=== PATIENT | female | born 1945 | race Caucasian/White ===

== ENCOUNTER 2016-05-18 11:55 | Emergency (ER) | payer MEDICARE, OTHER ==
[~2016-05-18 11:55] MED LIST: ALEV220T26 PO; AMBI5TAB PO; COUM2.5T11 PO; DYAZ37.5 PO; Docusate Sod/Senna PO; FLON0.054; FLUO20CA8 PO; LEVO2TA PO; LEVO50TA5 PO; PERC5TAB6 PO; VITA200016 PO; triamterene PO
[2016-05-18] MEDS ORDERED: KETOROLAC 30 MG/ML VIAL (J1885) As Ordered ONE (13:40)
--- NOTE | 2016-05-18 15:24 | EDDOCDS ---
Physician Documentation [facility] Name: Nury Holguin Age: 70 yrs Sex: Female : 1945 Arrival Date: 05/18/2016 Time: 11:55 Bed 12 Private MD: Allyssa Faust Disposition: 05/18/16 14:36 Discharged to Home/Self Care. Impression: Low back pain. - Condition is Stable. - Discharge Instructions: Back Pain, Adult, Musculoskeletal Pain. - Prescriptions for Ibuprofen 600 mg Oral Tablet - take 1 tablet by ORAL route every 6 hours As needed take with food; 30 tablet. Cyclobenzaprine 10 mg Oral Tablet - take 1 tablet by ORAL route 3 times per day As needed; 15 tablet. - Medication Reconciliation, Local Pharmacy Hours form. - Follow up: Allyssa Faust; When: 4 - 5 days; Reason: Recheck today's complaints, Continuance of care. - Problem is an ongoing problem. - Symptoms are unchanged. - Notes: ice 20min an hour Historical: - Allergies: SULFA (SULFONAMIDES); - Home Meds: 1. Ambien 5 mg Oral tab 1 tab once daily 2. Synthroid 50 mcg Oral tab 1 tab once daily 3. fluoxetine 40 mg Oral cap 1 cap once daily 4. triamterene 37.5mg daily 5. Vitamin D Oral 2000 units daily 6. pravastatin oral Unknown oral once daily - PMHx: Thyroid problem; Hypercholesterolemia; Depression; - PSHx: Thyroidectomy; left knee; - Social history: Smoking status: Patient states former smoker of tobacco. No barriers to communication noted, The patient speaks fluent Kazakh, Speaks appropriately for age. - Family history: Not pertinent. - : The pt / caregiver states he / she is not on anticoagulants. Home medication list is obtained from the patient. - Exposure Risk Screening:: None identified. Vital Signs: 05/18 11:59 BP 155 / 82; Pulse 62; Resp 18 S; Temp 96.9(O); Pulse Ox 99% on R/A; Weight 79.38 kg / gr2 175 lbs (R); Height 5 ft. 0 in. (152.40 cm) (R); Pain 9/10; 15:20 Pain 6/10; jo3 15:20 Pain 6/10; jo3 15:22 BP 176 / 88; Pulse 65; Resp 16; Temp 97.9(T); Pulse Ox 98% on R/A; jo3 11:59 Body Mass Index 34.18 (79.38 kg, 152.40 cm) gr2 MDM: 12:52 Undress patient appropriately for examination ordered. sd1 12:54 NOTHING BY MOUTH+DIET ordered. EDMS 13:28 ketorolac 30 mg IM once ordered. ke 13:28 Diazepam 5 mg IM once ordered. ke 13:29 UA Ordered. EDMS 13:29 Urine Culture Ordered. EDMS 13:37 Financial registration complete. lg 14:05 [facility] Payment Agreement was scanned into for[MD] and attached to record. lg 14:24 UA Reviewed. jean carlos Administered Medications: 13:51 Drug: Diazepam 5 mg [diazepam 5 mg/mL injection syringe (1 mL)] Route: IM; Site: right jo3 gluteus; 15:20 Follow up: Pain 6/10 Adult jo3 13:52 Drug: ketorolac 30 mg [ketorolac 30 mg/mL (1 mL) injection solution (1 mL)] Route: IM; jo3 Site: right gluteus; 15:20 Follow up: Pain 6/10 Adult jo3 Signatures: Dispatcher [employer] EDMS Kamilla Garcia MD MD sd1 Olivia Chapman, RN RN Dianne Bañuelos, Carlitos Urbina Prasanth Galdamez, SCANNER OPERATOR SCANNER OPERATOR Tammy Rivers RN RN jo3 The chart was reviewed and I authenticate all verbal orders and agree with the evaluation and treatment provided.Corrections: (The following items were deleted from the chart) 13: 12:53 AMYLASE+LAB ordered. EDMS EDMS 13:29 12:53 BASIC METABOLIC PROFILE+LAB ordered. EDMS EDMS 13: 12:53 CBC WITH DIFFERENTIAL+LAB ordered. EDMS EDMS 13: 12:54 LIPASE+LAB ordered. EDMS EDMS 13:29 12:54 LIVER PROFILE+LAB ordered. EDMS EDMS Attachments: 14:05 [facility] Payment Agreement lg MTDD
--- NOTE | 2016-05-18 15:24 | EDDOCDS ---
Nurse's Notes [facility] Name: Nury Holguin Age: 70 yrs Sex: Female : 1945 Arrival Date: 05/18/2016 Time: 11:55 Bed 12 Private MD: Allyssa Faust Diagnosis: Low back pain Presentation: 05/18 12:12 Presenting complaint: Patient states: low back pain that to left lower quad. symptoms srm for a couple of days. today couldn't hardly stand. had kidney infection a month ago and was on antibiotic for sinus infection. no injury to back. Adult Sepsis Screening: The patient does not have new or worsening altered mentation. Patient's respiratory rate is less than 22. Systolic blood pressure is greater than 100. Patient has a qSOFA score of 0- Negative Sepsis Screen. Suicide/Homicide risk assessment- the patient denies having any suicidal and/or homicidal ideations and does not present with any other emotional, behavioral or mental health complaints. Status: Patient is not a business services director or dependent. Transition of care: patient was not received from another setting of care. 12:12 Acuity: XAVIER Level 3 srm 12:12 Method Of Arrival: Wheelchair srm Triage Assessment: 12:17 General: Appears in no apparent distress, Behavior is appropriate for age, cooperative. srm Pain: Pain currently is 10 out of 10 on a pain scale. Historical: - Allergies: SULFA (SULFONAMIDES); - Home Meds: 1. Ambien 5 mg Oral tab 1 tab once daily 2. Synthroid 50 mcg Oral tab 1 tab once daily 3. fluoxetine 40 mg Oral cap 1 cap once daily 4. triamterene 37.5mg daily 5. Vitamin D Oral 2000 units daily 6. pravastatin oral Unknown oral once daily - PMHx: Thyroid problem; Hypercholesterolemia; Depression; - PSHx: Thyroidectomy; left knee; - Social history: Smoking status: Patient states former smoker of tobacco. No barriers to communication noted, The patient speaks fluent Croatian, Speaks appropriately for age. - Family history: Not pertinent. - : The pt / caregiver states he / she is not on anticoagulants. Home medication list is obtained from the patient. - Exposure Risk Screening:: None identified. Assessment: 13:52 General: Appears uncomfortable, Behavior is appropriate for age, cooperative. jo3 Neurological: Level of Consciousness is awake, alert, Oriented to person, place, time. Cardiovascular: No deficits noted. Respiratory: Airway is patent Respiratory effort is even, unlabored. Derm: Skin is pink, warm & dry. Musculoskeletal: Reports pain to low back radiating to groin. 14:50 Reassessment: Patient appears in no apparent distress at this time. Patient states jo3 feeling better. Patient states symptoms have improved. 15:22 General: Appears in no apparent distress, comfortable, Behavior is appropriate for age, jo3 cooperative. Neurological: Level of Consciousness is awake, alert, Oriented to person, place, time. Respiratory: No deficits noted. Airway is patent Respiratory effort is even, unlabored. Derm: Skin is pink, warm & dry. Vital Signs: 11:59 BP 155 / 82; Pulse 62; Resp 18 S; Temp 96.9(O); Pulse Ox 99% on R/A; Weight 79.38 kg gr2 (R); Height 5 ft. 0 in. (152.40 cm) (R); Pain 9/10; 15:20 Pain 6/10; jo3 15:20 Pain 6/10; jo3 15:22 BP 176 / 88; Pulse 65; Resp 16; Temp 97.9(T); Pulse Ox 98% on R/A; jo3 11:59 Body Mass Index 34.18 (79.38 kg, 152.40 cm) gr2 Vitals: 11:59 Log In Time: May 18, 2016 at 11:59. gr2 ED Course: 11:58 Patient visited by Shey Caba. gr2 11:58 Allyssa Faust is Private Physician. gr2 11:58 Patient moved to Waiting gr2 12:00 Patient visited by Shey Caba. gr2 12:00 Patient moved to Pre RCE gr2 12:14 Triage Initiated srm 12:49 Patient moved to 12 srm 13:10 Prasanth Galdamez FNP is [facility]. ke 13:10 Patient visited by Prasanth Galdamez FNP. ke 13:10 Patient visited by Prasanth Galdamez FNP. ke 13:37 Patient visited by Prasanth Galdamez FNP. ke 13:52 Urine Culture Sent. jo3 13:52 UA Sent. jo3 13:53 Patient visited by Tammy Perez RN. jo3 14:05 [facility] Payment Agreement was scanned into [employer] and attached to record. lg 14:24 Patient visited by Prasanth Galdamez FNP. ke 14:36 Allyssa Faust is Referral Physician. ke 15:23 Patient visited by Tammy Perez RN. jo3 Administered Medications: 13:51 Drug: Diazepam 5 mg [diazepam 5 mg/mL injection syringe (1 mL)] Route: IM; Site: right jo3 gluteus; 15:20 Follow up: Pain 6/10 Adult jo3 13:52 Drug: ketorolac 30 mg [ketorolac 30 mg/mL (1 mL) injection solution (1 mL)] Route: IM; jo3 Site: right gluteus; 15:20 Follow up: Pain 6/10 Adult jo3 Order Results: Lab Order: UA; SPEC'M 05/18/16 13:49 Test: APPEARANCE, URINE; Value: CLEAR; Range: CLEAR; Status: F Test: COLOR, URINE; Value: YELLOW; Range: YELLOW; Status: F Test: PH,URINE; Value: 7.0; Range: 5.0-9.0; Units: UNITS; Status: F Test: SPECIFIC GRAVITY URINE AUTO; Value: 1.014; Range: 1.002-1.035; Status: F Test: PROTEIN, URINE AUTO; Value: NEGATIVE; Range: NEGATIVE; Units: mg/dL; Status: F Test: GLUCOSE, URINE (UA) AUTO; Value: NEGATIVE; Range: NEGATIVE; Units: mg/dL; Status: F Test: KETONE, URINE AUTO; Value: NEGATIVE; Range: NEGATIVE; Units: mg/dL; Status: F Test: UROBILINOGEN, URINE AUTO; Value: 0.2; Range: 0.0-2.0; Units: mg/dL; Status: F Test: BILIRUBIN, URINE AUTO; Value: NEGATIVE; Range: NEGATIVE; Status: F Test: NITRITE, URINE AUTO; Value: NEGATIVE; Range: NEGATIVE; Status: F Test: LEUKOCYTE ESTERASE, URINE AUTO; Value: NEGATIVE; Range: NEGATIVE; Status: F Test: BLOOD, URINE BLOOD; Value: NEGATIVE; Range: NEGATIVE; Status: F Test: WBC, URINE AUTO; Value: 1; Range: 0-3; Units: /HPF; Status: F Test: RBC, URINE AUTO; Value: 0; Range: 0-3; Units: /HPF; Status: F Test: BACTERIA, URINE AUTO; Value: NEGATIVE; Range: NEGATIVE; Status: F Test: SQUAMOUS EPITHELIAL CELL UR AU; Value: 3; Range: 0-6; Units: /HPF; Status: F Test: HYALINE CAST, URINE AUTO; Value: 0; Range: 0-1; Units: /LPF; Status: F Outcome: 14:36 Discharge ordered by Provider. 15:23 Patient left the ED. jo3 Signatures: Olivia Chapman, RN RN Dianne Bañuelos, Reg Reg Prasanth Galdamez, FILM PROJECTOR OPERATOR FILM PROJECTOR OPERATOR Tammy Rivers RN RN jo3 Shey Caba2 MTDD
--- NOTE | 2016-05-20 16:23 | EDDOCDS ---
Physician Documentation [facility] Name: Nury Holguin Age: 70 yrs Sex: Female : 1945 Arrival Date: 05/18/2016 Time: 11:55 Bed 12 Private MD: Allyssa Faust Disposition: 05/18/16 14:36 Discharged to Home/Self Care. Impression: Low back pain. - Condition is Stable. - Discharge Instructions: Back Pain, Adult, Musculoskeletal Pain. - Prescriptions for Ibuprofen 600 mg Oral Tablet - take 1 tablet by ORAL route every 6 hours As needed take with food; 30 tablet. Cyclobenzaprine 10 mg Oral Tablet - take 1 tablet by ORAL route 3 times per day As needed; 15 tablet. - Medication Reconciliation, Local Pharmacy Hours form. - Follow up: Allyssa Faust; When: 4 - 5 days; Reason: Recheck today's complaints, Continuance of care. - Problem is an ongoing problem. - Symptoms are unchanged. - Notes: ice 20min an hour Historical: - Allergies: SULFA (SULFONAMIDES); - Home Meds: 1. Ambien 5 mg Oral tab 1 tab once daily 2. Synthroid 50 mcg Oral tab 1 tab once daily 3. fluoxetine 40 mg Oral cap 1 cap once daily 4. triamterene 37.5mg daily 5. Vitamin D Oral 2000 units daily 6. pravastatin oral Unknown oral once daily - PMHx: Thyroid problem; Hypercholesterolemia; Depression; - PSHx: Thyroidectomy; left knee; - Social history: Smoking status: Patient states former smoker of tobacco. No barriers to communication noted, The patient speaks fluent Angolan, Speaks appropriately for age. - Family history: Not pertinent. - : The pt / caregiver states he / she is not on anticoagulants. Home medication list is obtained from the patient. - Exposure Risk Screening:: None identified. Vital Signs: 05/18 11:59 BP 155 / 82; Pulse 62; Resp 18 S; Temp 96.9(O); Pulse Ox 99% on R/A; Weight 79.38 kg / gr2 175 lbs (R); Height 5 ft. 0 in. (152.40 cm) (R); Pain 9/10; 15:20 Pain 6/10; jo3 15:20 Pain 6/10; jo3 15:22 BP 176 / 88; Pulse 65; Resp 16; Temp 97.9(T); Pulse Ox 98% on R/A; jo3 11:59 Body Mass Index 34.18 (79.38 kg, 152.40 cm) gr2 MDM: 12:52 Undress patient appropriately for examination ordered. sd1 12:54 NOTHING BY MOUTH+DIET ordered. EDMS 13:28 ketorolac 30 mg IM once ordered. ke 13:28 Diazepam 5 mg IM once ordered. ke 13:29 UA Ordered. EDMS 13:29 Urine Culture Ordered. EDMS 13:37 Financial registration complete. lg 14:05 [facility] Payment Agreement was scanned into [email or web address] and attached to record. lg 14:24 UA Reviewed. 05/19 10:51 T-Sheet-- Draft Copy was scanned into [email or web address] and attached to record. gb Administered Medications: 05/18 13:51 Drug: Diazepam 5 mg [diazepam 5 mg/mL injection syringe (1 mL)] Route: IM; Site: right jo3 gluteus; 15:20 Follow up: Pain 6/10 Adult jo3 13:52 Drug: ketorolac 30 mg [ketorolac 30 mg/mL (1 mL) injection solution (1 mL)] Route: IM; jo3 Site: right gluteus; 15:20 Follow up: Pain 6/10 Adult jo3 Signatures: Dispatcher [employer] EDKamilla Trujillo MD MD sd1 Olivia Chapman, RN RN [facility] Susan ePres, Reg Reg Dianne Block, Reg Reg Prasanth Galdamez, SALES ADVISORY MANAGER SALES ADVISORY MANAGER Tammy RiversRN RN jo3 The chart was reviewed and I authenticate all verbal orders and agree with the evaluation and treatment provided.Corrections: (The following items were deleted from the chart) 13:29 12:53 AMYLASE+LAB ordered. EDMS EDMS 13:29 12:53 BASIC METABOLIC PROFILE+LAB ordered. EDMS EDMS 13:29 12:53 CBC WITH DIFFERENTIAL+LAB ordered. EDMS EDMS 13:29 12:54 LIPASE+LAB ordered. EDMS EDMS 13:29 12:54 LIVER PROFILE+LAB ordered. EDMS EDMS Attachments: 14:05 [facility] Payment Agreement 05/19 10:51 T-Sheet-- Draft Copy gb Chart Complete MTDD
--- NOTE | 2016-05-20 16:23 | EDDOCDS ---
Nurse's Notes [facility] Name: Nury Holguin Age: 70 yrs Sex: Female : 1945 Arrival Date: 05/18/2016 Time: 11:55 Bed 12 Private MD: Allyssa Faust Diagnosis: Low back pain Presentation: 05/18 12:12 Presenting complaint: Patient states: low back pain that to left lower quad. symptoms srm for a couple of days. today couldn't hardly stand. had kidney infection a month ago and was on antibiotic for sinus infection. no injury to back. Adult Sepsis Screening: The patient does not have new or worsening altered mentation. Patient's respiratory rate is less than 22. Systolic blood pressure is greater than 100. Patient has a qSOFA score of 0- Negative Sepsis Screen. Suicide/Homicide risk assessment- the patient denies having any suicidal and/or homicidal ideations and does not present with any other emotional, behavioral or mental health complaints. Status: Patient is not a client service and consulting manager or dependent. Transition of care: patient was not received from another setting of care. 12:12 Acuity: XAVIER Level 3 srm 12:12 Method Of Arrival: Wheelchair srm Triage Assessment: 12:17 General: Appears in no apparent distress, Behavior is appropriate for age, cooperative. srm Pain: Pain currently is 10 out of 10 on a pain scale. Historical: - Allergies: SULFA (SULFONAMIDES); - Home Meds: 1. Ambien 5 mg Oral tab 1 tab once daily 2. Synthroid 50 mcg Oral tab 1 tab once daily 3. fluoxetine 40 mg Oral cap 1 cap once daily 4. triamterene 37.5mg daily 5. Vitamin D Oral 2000 units daily 6. pravastatin oral Unknown oral once daily - PMHx: Thyroid problem; Hypercholesterolemia; Depression; - PSHx: Thyroidectomy; left knee; - Social history: Smoking status: Patient states former smoker of tobacco. No barriers to communication noted, The patient speaks fluent Solomon Islander, Speaks appropriately for age. - Family history: Not pertinent. - : The pt / caregiver states he / she is not on anticoagulants. Home medication list is obtained from the patient. - Exposure Risk Screening:: None identified. Assessment: 13:52 General: Appears uncomfortable, Behavior is appropriate for age, cooperative. jo3 Neurological: Level of Consciousness is awake, alert, Oriented to person, place, time. Cardiovascular: No deficits noted. Respiratory: Airway is patent Respiratory effort is even, unlabored. Derm: Skin is pink, warm & dry. Musculoskeletal: Reports pain to low back radiating to groin. 14:50 Reassessment: Patient appears in no apparent distress at this time. Patient states jo3 feeling better. Patient states symptoms have improved. 15:22 General: Appears in no apparent distress, comfortable, Behavior is appropriate for age, jo3 cooperative. Neurological: Level of Consciousness is awake, alert, Oriented to person, place, time. Respiratory: No deficits noted. Airway is patent Respiratory effort is even, unlabored. Derm: Skin is pink, warm & dry. Vital Signs: 11:59 BP 155 / 82; Pulse 62; Resp 18 S; Temp 96.9(O); Pulse Ox 99% on R/A; Weight 79.38 kg gr2 (R); Height 5 ft. 0 in. (152.40 cm) (R); Pain 9/10; 15:20 Pain 6/10; jo3 15:20 Pain 6/10; jo3 15:22 BP 176 / 88; Pulse 65; Resp 16; Temp 97.9(T); Pulse Ox 98% on R/A; jo3 11:59 Body Mass Index 34.18 (79.38 kg, 152.40 cm) gr2 Vitals: 11:59 Log In Time: May 18, 2016 at 11:59. gr2 ED Course: 11:58 Patient visited by Shey Caba. gr2 11:58 Allyssa Faust is Private Physician. gr2 11:58 Patient moved to Waiting gr2 12:00 Patient visited by Shey Caba. gr2 12:00 Patient moved to Pre RCE gr2 12:14 Triage Initiated srm 12:49 Patient moved to 12 srm 13:10 Prasanth Galdamez FNP is [facility]. ke 13:10 Patient visited by Prasanth Galdamez FNP. ke 13:10 Patient visited by Prasanth Galdamez FNP. ke 13:37 Patient visited by Prasanth Galdamez FNP. ke 13:52 Urine Culture Sent. jo3 13:52 UA Sent. jo3 13:53 Patient visited by Tammy Perez RN. jo3 14:05 [facility] Payment Agreement was scanned into [employer] and attached to record. lg 14:24 Patient visited by Prasanth Galdamez FNP. ke 14:36 Allyssa Faust is Referral Physician. ke 15:23 Patient visited by Tammy Perez RN. jo3 05/19 10:51 T-Sheet-- Draft Copy was scanned into [employer] and attached to record. gb Administered Medications: 05/18 13:51 Drug: Diazepam 5 mg [diazepam 5 mg/mL injection syringe (1 mL)] Route: IM; Site: right jo3 gluteus; 15:20 Follow up: Pain 6/10 Adult jo3 13:52 Drug: ketorolac 30 mg [ketorolac 30 mg/mL (1 mL) injection solution (1 mL)] Route: IM; jo3 Site: right gluteus; 15:20 Follow up: Pain 6 Adult jo3 Order Results: Lab Order: UA; SPEC'M 05/18/16 13:49 Test: APPEARANCE, URINE; Value: CLEAR; Range: CLEAR; Status: F Test: COLOR, URINE; Value: YELLOW; Range: YELLOW; Status: F Test: PH,URINE; Value: 7.0; Range: 5.0-9.0; Units: UNITS; Status: F Test: SPECIFIC GRAVITY URINE AUTO; Value: 1.014; Range: 1.002-1.035; Status: F Test: PROTEIN, URINE AUTO; Value: NEGATIVE; Range: NEGATIVE; Units: mg/dL; Status: F Test: GLUCOSE, URINE (UA) AUTO; Value: NEGATIVE; Range: NEGATIVE; Units: mg/dL; Status: F Test: KETONE, URINE AUTO; Value: NEGATIVE; Range: NEGATIVE; Units: mg/dL; Status: F Test: UROBILINOGEN, URINE AUTO; Value: 0.2; Range: 0.0-2.0; Units: mg/dL; Status: F Test: BILIRUBIN, URINE AUTO; Value: NEGATIVE; Range: NEGATIVE; Status: F Test: NITRITE, URINE AUTO; Value: NEGATIVE; Range: NEGATIVE; Status: F Test: LEUKOCYTE ESTERASE, URINE AUTO; Value: NEGATIVE; Range: NEGATIVE; Status: F Test: BLOOD, URINE BLOOD; Value: NEGATIVE; Range: NEGATIVE; Status: F Test: WBC, URINE AUTO; Value: 1; Range: 0-3; Units: /HPF; Status: F Test: RBC, URINE AUTO; Value: 0; Range: 0-3; Units: /HPF; Status: F Test: BACTERIA, URINE AUTO; Value: NEGATIVE; Range: NEGATIVE; Status: F Test: SQUAMOUS EPITHELIAL CELL UR AU; Value: 3; Range: 0-6; Units: /HPF; Status: F Test: HYALINE CAST, URINE AUTO; Value: 0; Range: 0-1; Units: /LPF; Status: F Lab Order: Urine Culture; SPEC'M 05/18/16 13:49 Test: URINE CULTURE; Value: <EXTERNAL COMMENT eCWMed> FULL REPORT IN LAB NOTES (eCW and Medent).; Status: F Test: URINE CULTURE; Value: URINE CULTURE RESULT NO GROWTH; Status: F Outcome: 14:36 Discharge ordered by Provider. jean carlos 15:23 Patient left the ED. jo3 Signatures: Olivia Chapman, RN RN [facility] Susan Peres, Reg Reg gb Dianne Block, Reg Reg lg Prasanth Galdamez, SENIOR RESEARCH CONSULTANT SENIOR RESEARCH CONSULTANT Tammy Rivers RN RN jo3 Shey Caba gr2 Chart Complete [facility]
--- NOTE | 2016-05-20 16:23 | EDDOCDS ---
Physician Documentation [facility] Name: Nury Holguin Age: 70 yrs Sex: Female : 1945 Arrival Date: 05/18/2016 Time: 11:55 Bed 12 Private MD: Allyssa Faust Disposition: 05/18/16 14:36 Discharged to Home/Self Care. Impression: Low back pain. - Condition is Stable. - Discharge Instructions: Back Pain, Adult, Musculoskeletal Pain. - Prescriptions for Ibuprofen 600 mg Oral Tablet - take 1 tablet by ORAL route every 6 hours As needed take with food; 30 tablet. Cyclobenzaprine 10 mg Oral Tablet - take 1 tablet by ORAL route 3 times per day As needed; 15 tablet. - Medication Reconciliation, Local Pharmacy Hours form. - Follow up: Allyssa Faust; When: 4 - 5 days; Reason: Recheck today's complaints, Continuance of care. - Problem is an ongoing problem. - Symptoms are unchanged. - Notes: ice 20min an hour Historical: - Allergies: SULFA (SULFONAMIDES); - Home Meds: 1. Ambien 5 mg Oral tab 1 tab once daily 2. Synthroid 50 mcg Oral tab 1 tab once daily 3. fluoxetine 40 mg Oral cap 1 cap once daily 4. triamterene 37.5mg daily 5. Vitamin D Oral 2000 units daily 6. pravastatin oral Unknown oral once daily - PMHx: Thyroid problem; Hypercholesterolemia; Depression; - PSHx: Thyroidectomy; left knee; - Social history: Smoking status: Patient states former smoker of tobacco. No barriers to communication noted, The patient speaks fluent Bulgarian, Speaks appropriately for age. - Family history: Not pertinent. - : The pt / caregiver states he / she is not on anticoagulants. Home medication list is obtained from the patient. - Exposure Risk Screening:: None identified. Vital Signs: 05/18 11:59 BP 155 / 82; Pulse 62; Resp 18 S; Temp 96.9(O); Pulse Ox 99% on R/A; Weight 79.38 kg / gr2 175 lbs (R); Height 5 ft. 0 in. (152.40 cm) (R); Pain 9/10; 15:20 Pain 6/10; jo3 15:20 Pain 6/10; jo3 15:22 BP 176 / 88; Pulse 65; Resp 16; Temp 97.9(T); Pulse Ox 98% on R/A; jo3 11:59 Body Mass Index 34.18 (79.38 kg, 152.40 cm) gr2 MDM: 12:52 Undress patient appropriately for examination ordered. sd1 12:54 NOTHING BY MOUTH+DIET ordered. EDMS 13:28 ketorolac 30 mg IM once ordered. ke 13:28 Diazepam 5 mg IM once ordered. ke 13:29 UA Ordered. EDMS 13:29 Urine Culture Ordered. EDMS 13:37 Financial registration complete. lg 14:05 [facility] Payment Agreement was scanned into [employer] and attached to record. lg 14:24 UA Reviewed. 05/19 10:51 T-Sheet-- Draft Copy was scanned into [employer] and attached to record. gb Administered Medications: 05/18 13:51 Drug: Diazepam 5 mg [diazepam 5 mg/mL injection syringe (1 mL)] Route: IM; Site: right jo3 gluteus; 15:20 Follow up: Pain 6/10 Adult jo3 13:52 Drug: ketorolac 30 mg [ketorolac 30 mg/mL (1 mL) injection solution (1 mL)] Route: IM; jo3 Site: right gluteus; 15:20 Follow up: Pain 6/10 Adult jo3 Signatures: Dispatcher [employer] EDKamilla Trujillo MD MD sd1 Olivia Chapman, RN RN [facility] Susan Peres, Reg Reg Dianne Block, Reg Reg Prasanth Galdamez, PRUNER PRUNER Tammy RiversRN RN jo3 The chart was reviewed and I authenticate all verbal orders and agree with the evaluation and treatment provided.Corrections: (The following items were deleted from the chart) 13:29 12:53 AMYLASE+LAB ordered. EDMS EDMS 13:29 12:53 BASIC METABOLIC PROFILE+LAB ordered. EDMS EDMS 13:29 12:53 CBC WITH DIFFERENTIAL+LAB ordered. EDMS EDMS 13:29 12:54 LIPASE+LAB ordered. EDMS EDMS 13:29 12:54 LIVER PROFILE+LAB ordered. EDMS EDMS Attachments: 14:05 [facility] Payment Agreement 05/19 10:51 T-Sheet-- Draft Copy gb Chart Complete MTDD
== END 2016-05-18 15:23 | disposition home or self-care (01) ==
LOC: M ED 11:55
DX: S33.5XXA Sprain of ligaments of lumbar spine, initial encounter (principal); X58.XXXA Exposure to other specified factors, initial encounter; Y92.89 Other specified places as the place of occurrence of the external cause; Y93.89 Activity, other specified; Y99.8 Other external cause status; E07.9 Disorder of thyroid, unspecified; E78.00 Pure hypercholesterolemia, unspecified; F32.9 Major depressive disorder, single episode, unspecified; Z79.899 Other long term (current) drug therapy; Z88.2 Allergy status to sulfonamides; F17.210 Nicotine dependence, cigarettes, uncomplicated
CPT/HCPCS: 81001; 87086; 96372; 99283; J1885; J3360

== ENCOUNTER → 2016-07-14 | Outpatient (CLI) | payer MEDICARE, OTHER ==
--- NOTE | 2016-07-14 14:42 | REP ---
Bilateral carotid artery duplex ultrasound: Peak flow velocity analysis: RIGHT LEFT ICA. Peak flow velocity cm/sec 66 94 ICA Diastolic flow velocity cm/sec 19 34 ICA/CCA Ratio 0.4 0.8 There is shallow none echogenic atheromatous plaque bilaterally. Peak flow velocities are normal bilaterally. There is antegrade flow in the vertebral arteries bilaterally. A few cervical lymph nodes are incidentally noted. Nodules are noted in the left thyroid lobe. The findings indicate less than 50% narrowing bilaterally. There is no significant stenosis on the right or the left. Signed by Dillon Simmons MD 07/14/2016 02:33 P
== END ==
LOC: M RAD 12:54
PROVIDERS: ATTEND Ophthalmology
DX: H53.411 Scotoma involving central area, right eye (principal)

== ENCOUNTER → 2016-07-24 | Outpatient (REF) | payer MEDICARE, OTHER ==
[2016-07-24 14:07] LABS: ALBUMIN 4.2 GM/DL (3.2-5.2); ALBUMIN/GLOBULIN RATIO 1.31 (1.00-1.93); ALKALINE PHOSPHATASE 106 U/L (45-117); ALT/SGPT 24 U/L (12-78); ANION GAP 8 MEQ/L (8-16); AST/SGOT 20 U/L (15-37); BASO % 0.5 % (0.0-1.0); BILIRUBIN,TOTAL 0.5 MG/DL (0.2-1.0); BLOOD UREA NITROGEN 25 MG/DL (7-18); CARBON DIOXIDE LEVEL 29 MEQ/L (21-32); CHLORIDE LEVEL 104 MEQ/L (98-107); CREATININE FOR GFR 1.21 MG/DL (0.55-1.02); EOS # 0.1 K/mm3 (0.0-0.50); EOS % 1.7 % (0.0-3.0); GLOMERULAR FILTRATION RATE 46.8 (>39); GLUCOSE, FASTING 88 MG/DL (83-110); LARGE UNSTAINED CELL # 0.1 K/mm3 (0.0-0.4); LARGE UNSTAINED CELL % 1.4 % (0.0-4.0); LYMPH # 2.5 K/mm3 (1.5-4.5); LYMPH % 34.2 % (24.0-44.0); MEAN CORPUSCULAR HEMOGLOBIN 30.2 pg (27.0-33.0); MEAN CORPUSCULAR HGB CONC 32.5 g/dl (32.0-36.5); MEAN CORPUSCULAR VOLUME 92.9 fl (80.0-96.0); MONO # 0.5 K/mm3 (0.0-0.8); MONO % 6.6 % (0.0-5.0); NEUTROPHILS # 3.9 K/mm3 (1.8-7.7); NEUTROPHILS % 55.6 % (36.0-66.0); PLATELET COUNT, AUTOMATED 222 k/mm3 (150-450); POTASSIUM SERUM 4.3 MEQ/L (3.5-5.1); RED CELL DISTRIBUTION WIDTH 14.3 % (11.5-14.5); SODIUM LEVEL 141 MEQ/L (136-145); TOTAL PROTEIN 7.4 GM/DL (6.4-8.2); WHITE BLOOD COUNT 7.1 K/mm3 (4.0-10.0)
[2016-07-24 15:13] LABS: ERYTHROCYTE SEDIMENTATION RATE 43 mm/hr (0-30)
[2016-07-29 00:06] LABS: Lyme Disease IgG/IgM Antibodie <0.91 ISR (0.00-0.90); Lyme Disease IgM Ab Quantitati <0.80 index (0.00-0.79); SJOGREN'S ANTI SS-A <0.2 AI (0.0-0.9); SJOGREN'S ANTI SS-B <0.2 AI (0.0-0.9)
== END ==
LOC: M LAB REF 11:40
PROVIDERS: ATTEND Psychiatry & Neurology Neurology
DX: H35.60 Retinal hemorrhage, unspecified eye (principal); Z86.73 Personal history of transient ischemic attack (TIA), and cerebral infarction without residual deficits; Z79.899 Other long term (current) drug therapy

== ENCOUNTER → 2016-10-31 | Outpatient (CLI) | payer MEDICARE, OTHER ==
[~2016-10-31] MED LIST changes: -COUM2.5T11 PO; +COUM2.5T17 PO; +PERC5TAB12 PO; -PERC5TAB6 PO
[2016-10-31 11:46] LABS: CALCIUM LEVEL 9.6 MG/DL (8.8-10.2); CREATININE FOR GFR 1.73 MG/DL (0.55-1.02); GLOMERULAR FILTRATION RATE 30.9 (>39)
--- NOTE | 2016-10-31 12:02 | REP ---
Chest two views HISTORY: Preop Comparison: 12/27/2014 The lungs are clear. The heart is normal in size. The pulmonary vasculature is normal in appearance. The bony structure is intact. IMPRESSION: No acute disease. Signed by Thuan Enrique MD 10/31/2016 11:53 A
--- NOTE | 2016-10-31 22:39 | ECGEPIP ---
Stationary ECG Study [facility] Test Date: 2016-10-31 Pat Name: JEFFREY AGUERO Department: Room: - Gender: F Word Processor: : 1945 Requested By: JAIRO Vargas Order Number: [id number] Reading MD: Connor Lyles Measurements Intervals [place] Rate: 57 P: 51 ND: 193 QRS: -29 QRSD: 105 T: 19 QT: 425 QTc: 416 Interpretive Statements SINUS BRADYCARDIA BORDERLINE LEFT AXIS DEVIATION INCOMPLETE RIGHT BUNDLE BRANCH BLOCK No prior ECG available for comparison at the time of interpretation. Electronically Signed On 10-31-2016 22:39:31 EDT by Connor Lyles
== END ==
LOC: M LAB 10:17
PROVIDERS: ATTEND Ophthalmology
DX: Z01.818 Encounter for other preprocedural examination (principal); E07.9 Disorder of thyroid, unspecified; I10 Essential (primary) hypertension; R00.1 Bradycardia, unspecified; I45.10 Unspecified right bundle-branch block

== ENCOUNTER → 2017-10-26 | Outpatient (CLI) | payer MEDICARE, OTHER ==
[2017-10-26 10:51] LABS: HEMATOCRIT 39.8 % (36.0-47.0); MEAN CORPUSCULAR HEMOGLOBIN 29.7 pg (27.0-33.0); MEAN CORPUSCULAR HGB CONC 32.7 g/dl (32.0-36.5); MEAN CORPUSCULAR VOLUME 90.9 fl (80.0-96.0); PLATELET COUNT, AUTOMATED 199 10^3/uL (150-450); RED BLOOD COUNT 4.38 10^6/uL (4.00-5.40); RED CELL DISTRIBUTION WIDTH 14.5 % (11.5-14.5)
[2017-10-26 11:01] LABS: INR 0.91; PROTHROMBIN TIME 12.3 SECONDS (12.1-14.4)
[2017-10-26 11:15] LABS: ALBUMIN 3.4 GM/DL (3.2-5.2); ALBUMIN/GLOBULIN RATIO 0.94 (1.00-1.93); ALKALINE PHOSPHATASE 109 U/L (45-117); ALT/SGPT 21 U/L (12-78); ANION GAP 8 MEQ/L (8-16); AST/SGOT 15 U/L (7-37); BILIRUBIN,TOTAL 0.3 MG/DL (0.2-1.0); BLOOD UREA NITROGEN 28 MG/DL (7-18); CALCIUM LEVEL 8.9 MG/DL (8.8-10.2); CARBON DIOXIDE LEVEL 29 MEQ/L (21-32); CHLORIDE LEVEL 107 MEQ/L (98-107); CREATININE FOR GFR 1.24 MG/DL (0.55-1.30); GLOMERULAR FILTRATION RATE 45.3 (>39); GLUCOSE, FASTING 74 MG/DL (70-100); POTASSIUM SERUM 4.1 MEQ/L (3.5-5.1); SODIUM LEVEL 144 MEQ/L (136-145)
[2017-10-26 11:21] LABS: ERYTHROCYTE SEDIMENTATION RATE 37 mm/hr (0-30)
== END ==
LOC: M LAB 09:55
DX: Z01.818 Encounter for other preprocedural examination (principal); M17.11 Unilateral primary osteoarthritis, right knee; Z88.2 Allergy status to sulfonamides; Z91.013 Allergy to seafood; R94.31 Abnormal electrocardiogram [ECG] [EKG]
CPT/HCPCS: 71046

== ENCOUNTER 2017-11-09 10:12 | Inpatient (IN) | payer MEDICARE, OTHER ==
[~2017-11-09 10:12] MED LIST changes: -ALEV220T26 PO; -AMBI5TAB PO; -COUM2.5T17 PO; -DYAZ37.5 PO; -Docusate Sod/Senna PO; -FLON0.054; -FLUO20CA8 PO; -LEVO2TA PO; -LEVO50TA5 PO; -PERC5TAB12 PO; -VITA200016 PO; +hydroCHLOROthiazide 25 MG TAB PO; -triamterene PO
[2017-11-09] MEDS: ACETAMINOPHEN 500 MG TAB PO (11:11)
[2017-11-09] MEDS: LR 1,000 ML IV ×3 (11:11→18:03)
[2017-11-09] MEDS ORDERED: MIDAZOLAM INJ 2 MG/2 ML VIAL (J2250) As Ordered ×2 (12:04→14:56)
[2017-11-09] MEDS ORDERED: fentaNYL 100 MCG/2 ML INJECTION (J3010) As Ordered ×2 (12:04→14:56)
[2017-11-09] MEDS: fentaNYL 100 MCG/2 ML INJECTION (J3010) IV (12:10)
[2017-11-09] MEDS: MIDAZOLAM INJ 2 MG/2 ML VIAL (J2250) IV ×2 (12:10→12:18)
[2017-11-09] MEDS ORDERED: LIDOCAINE 2% INJ 100 MG/5 ML SDV (FOR ANES.) As Ordered (13:45)
[2017-11-09] MEDS ORDERED: PROPOFOL 200 MG/20 ML VIAL As Ordered ×2 (13:45)
[2017-11-09] MEDS: CLINDAMYCIN INJ 900MG/6ML VIAL As Ordered (14:05)
[2017-11-09] MEDS ORDERED: ROPIvacaine 0.5% 30 ML INJECTION (J2795 PER 1MG) (14:22)
[2017-11-09] MEDS ORDERED: dexameTHASONE 10 MG/1 ML VIAL PRES.FREE (J1100) (14:22)
[2017-11-09] MEDS ORDERED: LIDOCAINE 1% MDV 20ML VIAL (14:22)
[2017-11-09] MEDS: TRANEXAMIC ACID 100 MG/ML 10ML VIAL As Ordered (14:43)
[2017-11-09] MEDS: EPINEPHrine INJ 1 MG/ML 1ML AMP As Ordered (14:43)
[2017-11-09] MEDS: BUPIVACAINE HCL 0.25% 10 ML VIAL As Ordered (14:55)
[2017-11-09] MEDS: BUPIVACAINE LIPOSOME/PF 1.3% 20 ML VIAL (13.3MG/ML)(EXPAREL) As Ordered (14:55)
[2017-11-09] MEDS ORDERED: MORPHINE 1MG/ML IN 0.9% NACL 100ML IV BAG As Ordered (15:05)
[2017-11-09] MEDS ORDERED: ONDANSETRON 4MG/2ML VIAL (J2405) As Ordered (15:24)
[2017-11-09] MEDS ORDERED: METOCLOPRAMIDE INJ 10MG/2ML VIAL (J2765) As Ordered (15:26)
[2017-11-09] MEDS ORDERED: NALOXONE INJ 0.4 MG/1 ML VIAL (J2310) IV (15:30)
[2017-11-09] MEDS ORDERED: fentaNYL 100 MCG/2 ML INJECTION (J3010) IV (15:30)
[2017-11-09] MEDS ORDERED: NALBUPHINE HCL 10 MG/ML AMP (J2300) IV (15:30)
[2017-11-09] MEDS ORDERED: diphenhydrAMINE INJ 50MG/ML VIAL (J1200) IV (15:30)
[2017-11-09] MEDS ORDERED: MEPERIDINE INJ 25 MG/ML VIAL (J2175) IV (15:30)
[2017-11-09] MEDS ORDERED: ONDANSETRON 4MG/2ML VIAL (J2405) IV (15:30)
[2017-11-09] MEDS ORDERED: EPIDURAL/PCA KEYS XX (15:30)
[2017-11-09] MEDS ORDERED: PERCOCET 5MG/325MG TAB PO (15:30)
[2017-11-09] MEDS: METOCLOPRAMIDE INJ 10MG/2ML VIAL (J2765) IV (15:40)
[2017-11-09] MEDS: ONDANSETRON 4MG/2ML VIAL (J2405) IV (15:40)
[2017-11-09] MEDS ORDERED: ACETAMINOPHEN TAB 650MG DOSE (2X325MG) PO (15:45)
[2017-11-09] MEDS ORDERED: FLEET ENEMA PR (15:45)
[2017-11-09] MEDS: MORPHINE 1MG/ML IN 0.9% NACL 100ML IV BAG IV (15:46)
[2017-11-09] MEDS ORDERED: FLUTICASONE PROP 0.05% NASAL SPRAY 16 GM (FLONASE) (16:15)
[2017-11-09] MEDS: VITAMIN D 1,000 INTERNATIONAL UNITS TABLET PO (18:03)
[2017-11-09] MEDS: MIRALAX *UNIT DOSE* 17GM PACKET PO (18:03)
[2017-11-09] MEDS: SENOKOT S TAB PO (20:47)
[2017-11-09] MEDS: traZODone 50 MG TAB PO (20:47)
[2017-11-09] MEDS: PRAVASTATIN 10 MG TAB PO (20:47)
[2017-11-10] MEDS: LR 1,000 ML IV (04:15)
[2017-11-10] MEDS: LEVOTHYROXINE 75MCG TABLET (0.075MG) PO (05:55)
[2017-11-10 06:26] LABS: HEMATOCRIT 34.9 % (36.0-47.0); HEMOGLOBIN 11.4 g/dl (12.0-15.5); MEAN CORPUSCULAR HEMOGLOBIN 29.3 pg (27.0-33.0); MEAN CORPUSCULAR HGB CONC 32.7 g/dl (32.0-36.5); MEAN CORPUSCULAR VOLUME 89.7 fl (80.0-96.0); PLATELET COUNT, AUTOMATED 197 10^3/uL (150-450); RED BLOOD COUNT 3.89 10^6/uL (4.00-5.40); RED CELL DISTRIBUTION WIDTH 14.7 % (11.5-14.5); WHITE BLOOD COUNT 11.2 10^3/uL (4.0-10.0)
[2017-11-10 06:43] LABS: INR 0.94; PROTHROMBIN TIME 12.7 SECONDS (12.1-14.4)
[2017-11-10 06:48] LABS: ANION GAP 9 MEQ/L (8-16); BLOOD UREA NITROGEN 18 MG/DL (7-18); CALCIUM LEVEL 8.5 MG/DL (8.8-10.2); CARBON DIOXIDE LEVEL 28 MEQ/L (21-32); CHLORIDE LEVEL 108 MEQ/L (98-107); CREATININE FOR GFR 1.03 MG/DL (0.55-1.30); GLOMERULAR FILTRATION RATE 56.1 (>39); GLUCOSE, FASTING 117 MG/DL (70-100); POTASSIUM SERUM 3.6 MEQ/L (3.5-5.1); SODIUM LEVEL 145 MEQ/L (136-145)
[2017-11-10] MEDS: PERCOCET 5MG/325MG TAB PO ×4 (09:11→22:15)
[2017-11-10] MEDS: FLUoxetine 20 MG CAP PO (09:30)
[2017-11-10] MEDS: VITAMIN D 1,000 INTERNATIONAL UNITS TABLET PO (09:30)
[2017-11-10] MEDS: MIRALAX *UNIT DOSE* 17GM PACKET PO (09:31)
[2017-11-10] MEDS: SENOKOT S TAB PO ×2 (09:31→21:33)
[2017-11-10] MEDS: hydroCHLOROthiazide 25 MG TAB PO (09:31)
[2017-11-10] MEDS: RIVAROXABAN 10 MG TAB (XARELTO) PO (17:03)
[2017-11-10] MEDS: ONDANSETRON 4 MG TAB (S0181) PO ×2 (17:03→22:19)
[2017-11-10] MEDS: PRAVASTATIN 10 MG TAB PO (21:34)
[2017-11-10] MEDS: traZODone 50 MG TAB PO (21:34)
[2017-11-11] MEDS: PERCOCET 5MG/325MG TAB PO ×5 (02:33→20:01)
[2017-11-11 06:26] LABS: HEMATOCRIT 34.6 % (36.0-47.0); HEMOGLOBIN 11.6 g/dl (12.0-15.5); MEAN CORPUSCULAR HEMOGLOBIN 29.4 pg (27.0-33.0); MEAN CORPUSCULAR HGB CONC 33.5 g/dl (32.0-36.5); MEAN CORPUSCULAR VOLUME 87.6 fl (80.0-96.0); PLATELET COUNT, AUTOMATED 199 10^3/uL (150-450); RED BLOOD COUNT 3.95 10^6/uL (4.00-5.40); RED CELL DISTRIBUTION WIDTH 14.7 % (11.5-14.5); WHITE BLOOD COUNT 9.5 10^3/uL (4.0-10.0)
[2017-11-11] MEDS: LEVOTHYROXINE 75MCG TABLET (0.075MG) PO (06:26)
[2017-11-11] MEDS: ONDANSETRON 4 MG TAB (S0181) PO ×2 (06:26→11:04)
[2017-11-11 06:46] LABS: BLOOD UREA NITROGEN 11 MG/DL (7-18); CALCIUM LEVEL 8.7 MG/DL (8.8-10.2); CARBON DIOXIDE LEVEL 32 MEQ/L (21-32); CHLORIDE LEVEL 100 MEQ/L (98-107); CREATININE FOR GFR 0.95 MG/DL (0.55-1.30); GLOMERULAR FILTRATION RATE > 60.0 (>39); GLUCOSE, FASTING 106 MG/DL (70-100); MAGNESIUM LEVEL 2.1 MG/DL (1.8-2.4)
[2017-11-11 06:50] LABS: ANION GAP 9 MEQ/L (8-16); SODIUM LEVEL 141 MEQ/L (136-145)
[2017-11-11 06:51] LABS: POTASSIUM SERUM 2.9 MEQ/L (3.5-5.1)
[2017-11-11] MEDS: MIRALAX *UNIT DOSE* 17GM PACKET PO (09:05)
[2017-11-11] MEDS: VITAMIN D 1,000 INTERNATIONAL UNITS TABLET PO (09:06)
[2017-11-11] MEDS: POTASSIUM CHLORIDE 10 MEQ SR TABLET PO ×2 (09:06→14:10)
[2017-11-11] MEDS: LISINOPRIL 10 MG TAB PO (09:06)
[2017-11-11] MEDS: SENOKOT S TAB PO ×2 (09:06→19:58)
[2017-11-11] MEDS: KCL 10MEQ/100ML SWI (KRUN) 10 MEQ in APPROPRIATE DILUENT 1 EA IV (09:07)
[2017-11-11] MEDS: FLUoxetine 20 MG CAP PO (09:07)
[2017-11-11 12:43] LABS: ANION GAP 7 MEQ/L (8-16); BLOOD UREA NITROGEN 12 MG/DL (7-18); CALCIUM LEVEL 8.5 MG/DL (8.8-10.2); CARBON DIOXIDE LEVEL 32 MEQ/L (21-32); CHLORIDE LEVEL 99 MEQ/L (98-107); GLUCOSE, FASTING 133 MG/DL (70-100); POTASSIUM SERUM 3.4 MEQ/L (3.5-5.1); SODIUM LEVEL 138 MEQ/L (136-145)
[2017-11-11] MEDS: RIVAROXABAN 10 MG TAB (XARELTO) PO (17:34)
[2017-11-11] MEDS: LISINOPRIL 20 MG TAB PO (19:57)
[2017-11-11] MEDS: traZODone 50 MG TAB PO (19:58)
[2017-11-11] MEDS: PRAVASTATIN 10 MG TAB PO (19:58)
[2017-11-12] MEDS: PERCOCET 5MG/325MG TAB PO ×2 (00:29→05:13)
[2017-11-12] MEDS: LEVOTHYROXINE 75MCG TABLET (0.075MG) PO (05:12)
[2017-11-12] MEDS: ONDANSETRON 4 MG TAB (S0181) PO (05:12)
[2017-11-12 06:17] LABS: HEMATOCRIT 33.7 % (36.0-47.0); HEMOGLOBIN 10.9 g/dl (12.0-15.5); MEAN CORPUSCULAR HEMOGLOBIN 29.4 pg (27.0-33.0); MEAN CORPUSCULAR HGB CONC 32.3 g/dl (32.0-36.5); MEAN CORPUSCULAR VOLUME 90.8 fl (80.0-96.0); PLATELET COUNT, AUTOMATED 186 10^3/uL (150-450); RED BLOOD COUNT 3.71 10^6/uL (4.00-5.40); RED CELL DISTRIBUTION WIDTH 15.2 % (11.5-14.5); WHITE BLOOD COUNT 9.1 10^3/uL (4.0-10.0)
[2017-11-12 06:37] LABS: ANION GAP 7 MEQ/L (8-16); BLOOD UREA NITROGEN 10 MG/DL (7-18); CALCIUM LEVEL 8.7 MG/DL (8.8-10.2); CARBON DIOXIDE LEVEL 30 MEQ/L (21-32); CHLORIDE LEVEL 105 MEQ/L (98-107); CREATININE FOR GFR 0.98 MG/DL (0.55-1.30); GLOMERULAR FILTRATION RATE 59.4 (>39); GLUCOSE, FASTING 101 MG/DL (70-100); MAGNESIUM LEVEL 1.9 MG/DL (1.8-2.4); POTASSIUM SERUM 3.7 MEQ/L (3.5-5.1); SODIUM LEVEL 142 MEQ/L (136-145)
[2017-11-12] MEDS: MIRALAX *UNIT DOSE* 17GM PACKET PO ×2 (08:57→08:58)
[2017-11-12] MEDS: FLUoxetine 20 MG CAP PO (08:57)
[2017-11-12] MEDS: SENOKOT S TAB PO (08:57)
[2017-11-12] MEDS: LISINOPRIL 20 MG TAB PO (08:57)
[2017-11-12] MEDS: VITAMIN D 1,000 INTERNATIONAL UNITS TABLET PO (08:57)
== END 2017-11-12 11:45 | disposition home health service (06) | DRG 470 ==
LOC: M OR 10:12 → M MS5PR 16:59
PROC: 0SRC0J9 Replacement of Right Knee Joint with Synthetic Substitute, Cemented, Open Approach (ICD-10-PCS; principal; 2017-11-09 13:17)
DX: M17.11 Unilateral primary osteoarthritis, right knee (principal); F41.9 Anxiety disorder, unspecified; E78.5 Hyperlipidemia, unspecified; I10 Essential (primary) hypertension; R26.89 Other abnormalities of gait and mobility; E89.0 Postprocedural hypothyroidism; Z79.899 Other long term (current) drug therapy; Z88.2 Allergy status to sulfonamides; Z88.1 Allergy status to other antibiotic agents; Z91.013 Allergy to seafood; Z96.652 Presence of left artificial knee joint; Z87.891 Personal history of nicotine dependence

== ENCOUNTER → 2018-09-21 | Outpatient (REF) | payer MEDICARE, OTHER ==
[~2018-09-21] MED LIST changes: +ALEV220T26 PO; +AMBI5TAB PO; +BENA25CA4 PO; +COUM2.5T17 PO; +DYAZ37.5 PO; +Docusate Sod/Senna PO; +FLON0.054; +FLUO20CA8 PO; +LEVO2TA PO; +LEVO50TA5 PO; +LISI-538 PO; +PERC5TAB12 PO; +POTASSIUM PO; +PRAV10TA4 PO; +TRAZ1TAB10 PO; +TRIAMTERENE-HCTZ PO; +VITA200016 PO; +XARE10TA PO; -hydroCHLOROthiazide 25 MG TAB PO; +triamterene PO
== END ==
LOC: M LAB REF 12:24
PROVIDERS: ATTEND Internal Medicine
DX: M25.50 Pain in unspecified joint (principal)

== ENCOUNTER → 2018-12-29 | Outpatient (REF) | payer MEDICARE, OTHER | LOC: M LAB REF 17:01 | PROVIDERS: ATTEND Internal Medicine | DX: N39.0 Urinary tract infection, site not specified (principal) ==

== ENCOUNTER → 2020-03-29 | Outpatient (REF) | payer MEDICARE, OTHER ==
[~2020-03-29] MED LIST changes: +FLUO20CA20 PO; -FLUO20CA8 PO
[2020-03-29 17:49] LABS: ALBUMIN 4.1 GM/DL (3.2-5.2); PHOSPHORUS LEVEL 3.9 MG/DL (2.5-4.9)
== END ==
LOC: M LAB REF 16:07
PROVIDERS: ATTEND Internal Medicine
DX: L40.0 Psoriasis vulgaris (principal); Z51.81 Encounter for therapeutic drug level monitoring; Z79.899 Other long term (current) drug therapy

== ENCOUNTER → 2020-07-24 | Outpatient (CLI) | payer MEDICARE, OTHER ==
[~2020-07-24] MED LIST changes: +ISOVUE-370 76% 100ML VIAL As Ordered ONE; -LISI-538 PO; +LISI20TA33 PO
--- NOTE | 2020-07-24 12:35 | REP ---
INDICATION: PULMONARY NODULE, FOLLOW UP. COMPARISON: 06/15/2019 and 12/31/2018 TECHNIQUE: Noncontrast enhanced standard helical technique. FINDINGS: There is no evidence of mediastinal or hilar adenopathy. There are no pleural or pericardial effusions. The imaged upper abdomen and imaged osseous structures are unchanged. Evaluation of the lung duncan shows 2 stable nodules in the left lower lobe. No new abnormal nodules, masses, or opacities have developed. IMPRESSION: Stable CT examination of the chest. Lung rads category 2. According to the revised Fleischner society criteria yearly CT screening is recommended. <Electronically signed by Dickson Clemons > 07/24/20 [id number]
== END ==
LOC: M RAD 10:57
PROVIDERS: ATTEND Internal Medicine
DX: R91.8 Other nonspecific abnormal finding of lung field (principal)
CPT/HCPCS: 71260; Q9967

== ENCOUNTER → 2020-09-27 | Outpatient (REF) | payer MEDICARE, OTHER ==
[~2020-09-27] MED LIST changes: -ISOVUE-370 76% 100ML VIAL As Ordered ONE
== END ==
LOC: M LAB REF 16:31
PROVIDERS: ATTEND Internal Medicine
DX: N39.0 Urinary tract infection, site not specified (principal)

== ENCOUNTER → 2021-04-01 | Outpatient (REF) | payer MEDICARE, OTHER ==
[~2021-04-01] MED LIST changes: +FLUO-96 PO; -FLUO20CA20 PO
[2021-04-01 17:10] LABS: PHOSPHORUS LEVEL 3.5 MG/DL (2.5-4.9)
[2021-04-01 17:34] LABS: HEPATITIS B SURFACE ANTIGEN NEGATIVE (NEGATIVE)
[2021-04-01 18:01] LABS: HEPATITIS C VIRUS ABY INDEX 0.1 INDEX (<0.8)
[2021-04-01 18:02] LABS: HEPATITIS B CORE ANTIBODY IGM NEGATIVE (NEGATIVE)
[2021-04-01 18:03] LABS: HIV 1&2 SCREEN CENTAUR NEGATIVE (NEGATIVE)
== END ==
LOC: M LAB REF 16:14
PROVIDERS: ATTEND Internal Medicine
DX: L40.0 Psoriasis vulgaris (principal); Z51.81 Encounter for therapeutic drug level monitoring; Z79.899 Other long term (current) drug therapy

== ENCOUNTER → 2021-06-05 | Outpatient (CLI) | payer MEDICARE, OTHER | LOC: M WHC 13:26 | PROVIDERS: ATTEND Internal Medicine | DX: Z12.31 Encounter for screening mammogram for malignant neoplasm of breast (principal); M85.80 Other specified disorders of bone density and structure, unspecified site; Z78.0 Asymptomatic menopausal state; Z80.3 Family history of malignant neoplasm of breast; L40.0 Psoriasis vulgaris ==

== ENCOUNTER → 2021-12-10 | Outpatient (REF) | payer MEDICARE, OTHER ==
[2021-12-10 17:11] LABS: APPEARANCE, URINE MANUAL CLOUDY (CLEAR); COLOR, URINE MANUAL ORANGE (YELLOW)
[2021-12-10 17:12] LABS: BILIRUBIN, URINE MANUAL NEGATIVE (NEGATIVE); BLOOD URINE MANUAL POSITIVE (NEGATIVE); GLUCOSE, URINE (UA) MANUAL NEGATIVE (NEGATIVE); KETONE, URINE MANUAL NEGATIVE (NEGATIVE); LEUKOCYTE ESTERASE, URINE MAN POSITIVE (NEGATIVE); NITRITE, URINE MANUAL NEGATIVE (NEGATIVE); PROTEIN, URINE MANUAL 1+ mg/dL (NEGATIVE); UROBILINOGEN, URINE MANUAL NORMAL (NORMAL)
[2021-12-10 17:21] LABS: BACTERIA, URINE NONE SEEN; HYALINE CAST, URINE NONE SEEN /lpf (0-1); RBC, URINE TNTC /hpf (0-3); SQUAMOUS EPITHELIAL CELL URINE LARGE AMOUNT /hpf (SMALL AMT); WBC, URINE TNTC /hpf (0-3)
== END ==
LOC: M LAB REF 16:33
PROVIDERS: ATTEND Internal Medicine
DX: N39.0 Urinary tract infection, site not specified (principal)

== ENCOUNTER → 2022-09-11 | Outpatient (CLI) | payer MEDICARE, OTHER | LOC: M WUC 11:49 | PROVIDERS: ATTEND Nurse Practitioner Family | DX: L40.0 Psoriasis vulgaris (principal) ==

== ENCOUNTER → 2022-12-23 | Outpatient (CLI) | payer MEDICARE, OTHER ==
[~2022-12-23] MED LIST changes: +DIPH50CA PO; +FURO20TA2; +GASTROGRAFIN SOLUTION 30ML As Ordered ONE; +ISOVUE-370 76% 100ML VIAL As Ordered ONE; +OMEP-173; +PRAV40TA2; +PRED50TA PO; +RISA150S2; +SYNT75TA; +ZOLP5TAB
== END ==
LOC: M RAD 13:03
PROVIDERS: ATTEND Internal Medicine Medical Oncology
DX: R91.8 Other nonspecific abnormal finding of lung field (principal); I70.0 Atherosclerosis of aorta; I25.10 Atherosclerotic heart disease of native coronary artery without angina pectoris; N85.8 Other specified noninflammatory disorders of uterus
CPT/HCPCS: 71260; 74177; Q9963; Q9967

== ENCOUNTER → 2023-01-02 | Outpatient (CLI) | payer MEDICARE, OTHER ==
[~2023-01-02] MED LIST changes: -GASTROGRAFIN SOLUTION 30ML As Ordered ONE; -ISOVUE-370 76% 100ML VIAL As Ordered ONE
== END ==
LOC: M WHC 12:04
PROVIDERS: ATTEND Internal Medicine Medical Oncology
DX: D25.9 Leiomyoma of uterus, unspecified (principal)

== ENCOUNTER → 2023-07-10 | Outpatient (CLI) | payer MEDICARE, OTHER | LOC: M WHC 09:09 | PROVIDERS: ATTEND Internal Medicine | DX: Z12.31 Encounter for screening mammogram for malignant neoplasm of breast (principal); Z13.820 Encounter for screening for osteoporosis; M85.851 Other specified disorders of bone density and structure, right thigh; M85.852 Other specified disorders of bone density and structure, left thigh ==

== ENCOUNTER → 2023-07-27 | Outpatient (CLI) | payer MEDICARE, OTHER | LOC: M WHC 13:13 | PROVIDERS: ATTEND Internal Medicine | DX: Z12.31 Encounter for screening mammogram for malignant neoplasm of breast (principal); N63.11 Unspecified lump in the right breast, upper outer quadrant | CPT/HCPCS: 76642; 77065; G0279 ==

== ENCOUNTER → 2023-09-09 | Outpatient (CLI) | payer MEDICARE, OTHER | LOC: M WUC 13:23 | PROVIDERS: ATTEND Nurse Practitioner Family | DX: L40.0 Psoriasis vulgaris (principal); Z79.899 Other long term (current) drug therapy; Z51.81 Encounter for therapeutic drug level monitoring ==

== ENCOUNTER → 2023-11-19 | Outpatient (CLI) | payer MEDICARE, OTHER ==
[~2023-11-19] MED LIST changes: +ALEN70TA82; +LETR2.5T2 PO
[2023-11-19 13:22] LABS: BASO % 0.8 % (0.0-1.0); EOS # 0.2 10^3/uL (0.0-0.5); EOS % 3.6 % (0.0-3.0); HEMATOCRIT 38.6 % (36.0-47.0); HEMOGLOBIN 12.7 g/dl (12.0-15.5); LYMPH # 2.1 10^3/uL (1.5-5.0); LYMPH % 40.3 % (24.0-44.0); MEAN CORPUSCULAR HGB CONC 32.9 g/dl (32.0-36.5); MEAN CORPUSCULAR VOLUME 94.1 fl (80.0-96.0); MONO # 0.5 10^3/uL (0.0-0.8); MONO % 8.6 % (2.0-8.0); NEUTROPHILS # 2.4 10^3/uL (1.5-8.5); NEUTROPHILS % 46.5 % (36.0-66.0); PLATELET COUNT, AUTOMATED 216 10^3/uL (150-450); WHITE BLOOD COUNT 5.2 10^3/uL (4.0-10.0)
[2023-11-19 13:44] LABS: ALBUMIN 3.8 G/DL (3.2-5.2); ALKALINE PHOSPHATASE 104 U/L (46-116); ALT/SGPT 16 U/L (7.0-40); AST/SGOT 17 U/L (<34); BILIRUBIN,TOTAL 0.5 MG/DL (0.3-1.2); BLOOD UREA NITROGEN 19 MG/DL (9-23); CALCIUM LEVEL 8.2 MG/DL (8.3-10.6); CARBON DIOXIDE LEVEL 30 MMOL/L (20-31); CHLORIDE LEVEL 107 MMOL/L (98-107); GLOMERULAR FILTRATION RATE > 60.0 (>39); GLUCOSE, FASTING 97 MG/DL (74-106); MAGNESIUM LEVEL 2.1 MG/DL (1.8-2.4); POTASSIUM SERUM 3.7 MMOL/L (3.5-5.1); SODIUM LEVEL 141 MMOL/L (136-145); TOTAL PROTEIN 7.1 G/DL (5.7-8.2)
[2023-11-19 13:45] LABS: THYROID STIMULATING HORMONE 0.981 uIU/ML (0.55-4.78)
== END ==
LOC: M WUC 09:55
PROVIDERS: ATTEND Internal Medicine
DX: K21.9 Gastro-esophageal reflux disease without esophagitis (principal); E03.9 Hypothyroidism, unspecified; N18.31 Chronic kidney disease, stage 3a

== ENCOUNTER → 2023-11-19 | Outpatient (CLI) | payer MEDICARE, OTHER ==
[2023-11-19 13:23] LABS: BASO % 0.7 % (0.0-1.0); EOS # 0.2 10^3/uL (0.0-0.5); EOS % 3.3 % (0.0-3.0); HEMATOCRIT 38.9 % (36.0-47.0); HEMOGLOBIN 12.5 g/dl (12.0-15.5); LYMPH # 2.2 10^3/uL (1.5-5.0); LYMPH % 40.5 % (24.0-44.0); MEAN CORPUSCULAR HEMOGLOBIN 30.3 pg (27.0-33.0); MEAN CORPUSCULAR HGB CONC 32.1 g/dl (32.0-36.5); MEAN CORPUSCULAR VOLUME 94.2 fl (80.0-96.0); MONO # 0.5 10^3/uL (0.0-0.8); MONO % 9.7 % (2.0-8.0); NEUTROPHILS # 2.5 10^3/uL (1.5-8.5); NEUTROPHILS % 45.6 % (36.0-66.0); PLATELET COUNT, AUTOMATED 220 10^3/uL (150-450); RED BLOOD COUNT 4.13 10^6/uL (4.00-5.40); WHITE BLOOD COUNT 5.4 10^3/uL (4.0-10.0)
[2023-11-19 13:45] LABS: ALBUMIN 3.9 G/DL (3.2-5.2); ALKALINE PHOSPHATASE 104 U/L (46-116); ALT/SGPT 17 U/L (7.0-40); AST/SGOT 18 U/L (<34); BILIRUBIN,DIRECT 0.1 MG/DL (<0.4); BILIRUBIN,TOTAL 0.5 MG/DL (0.3-1.2); BLOOD UREA NITROGEN 19 MG/DL (9-23); CALCIUM LEVEL 8.6 MG/DL (8.3-10.6); CARBON DIOXIDE LEVEL 30 MMOL/L (20-31); CHLORIDE LEVEL 106 MMOL/L (98-107); CREATININE FOR GFR 0.88 MG/DL (0.55-1.30); GLOMERULAR FILTRATION RATE > 60.0 (>39); GLUCOSE, FASTING 97 MG/DL (74-106); PHOSPHORUS LEVEL 3.5 MG/DL (2.4-5.1); POTASSIUM SERUM 3.8 MMOL/L (3.5-5.1); SODIUM LEVEL 140 MMOL/L (136-145); TOTAL PROTEIN 7.1 G/DL (5.7-8.2)
[2023-11-19 14:03] LABS: HEPATITIS B SURFACE ANTIGEN NEGATIVE (NEGATIVE)
[2023-11-19 14:16] LABS: HIV 1&2 SCREEN NEGATIVE (NEGATIVE)
[2023-11-19 14:24] LABS: HEPATITIS C VIRUS ABY INDEX < 0.02 INDEX (<0.8)
[2023-11-23 13:52] LABS: QuantiFERON-TB Gold Plus NEGATIVE (NEGATIVE)
== END ==
LOC: M WUC 09:57
PROVIDERS: ATTEND Nurse Practitioner Family
DX: L40.0 Psoriasis vulgaris (principal); Z51.81 Encounter for therapeutic drug level monitoring; K21.9 Gastro-esophageal reflux disease without esophagitis; K03.9 Disease of hard tissues of teeth, unspecified; N18.31 Chronic kidney disease, stage 3a; Z79.899 Other long term (current) drug therapy; Z11.59 Encounter for screening for other viral diseases

== ENCOUNTER → 2024-06-14 | Outpatient (CLI) | payer MEDICARE, OTHER | LOC: M WUC 14:38 | PROVIDERS: ATTEND Internal Medicine Medical Oncology | DX: C50.919 Malignant neoplasm of unspecified site of unspecified female breast (principal) ==

== ENCOUNTER → 2024-07-22 | Outpatient (CLI) | payer MEDICARE, OTHER ==
[~2024-07-22] MED LIST changes: +EXEM25TA PO
== END ==
LOC: M WUC 10:42
PROVIDERS: ATTEND Internal Medicine
DX: M16.12 Unilateral primary osteoarthritis, left hip (principal); M25.552 Pain in left hip

== ENCOUNTER → 2024-07-25 | Outpatient (CLI) | payer MEDICARE, OTHER | LOC: M WUC 10:56 | PROVIDERS: ATTEND Internal Medicine | DX: M54.50 Low back pain, unspecified (principal) ==